=== PATIENT | female | born 1995 | race Caucasian/White ===

== ENCOUNTER 2018-09-11 11:55 | Emergency (ER) | payer BC, OTHER ==
[2018-09-11] MEDS: FAMOTIDINE 20 MG TAB PO (12:36)
[2018-09-11] MEDS: ONDANSETRON (ODT) 4 MG TAB ODT (12:36)
== END 2018-09-11 13:24 | disposition home or self-care (01) ==
LOC: FTE 11:55
DX: R11.2 Nausea with vomiting, unspecified (principal)
CPT/HCPCS: 99283